=== PATIENT | male | born 1960 | race Two or more races ===

== ENCOUNTER → 2022-03-05 09:33 | Outpatient (BNVA) | payer OTHER, MEDICARE, SELFPAY | PROVIDERS: PCP Family Medicine; Visit Provider Internal Medicine Rheumatology | DX: L40.50 Arthropathic psoriasis, unspecified (principal); Z79.60 Long term (current) use of unspecified immunomodulators and immunosuppressants | CPT/HCPCS: 99202 ==

== ENCOUNTER → 2022-07-05 08:42 | Outpatient (BNVA) | payer OTHER, MEDICARE, SELFPAY | PROVIDERS: PCP Family Medicine; Visit Provider Internal Medicine Rheumatology | DX: L40.50 Arthropathic psoriasis, unspecified (principal); Z79.60 Long term (current) use of unspecified immunomodulators and immunosuppressants | CPT/HCPCS: 99212 ==

== ENCOUNTER 2022-08-07 08:57 | Outpatient (REF) | payer OTHER, MEDICARE, SELFPAY ==
[2022-08-07 10:50] LABS: MANUAL DIFF FLAG NO
[2022-08-07 10:58] LABS: Basophils Percent Auto 0.6 % (0-2); Eosinophils Absolute Auto 0.2 X10*3/uL (0.0-0.4); Hematocrit 41.4 % (42.0-52.0); Hemoglobin 14.4 g/dl (14.0-18.0); Imm Gran Abs Auto 0.02 X10*3/uL (0.00-0.03); Imm Gran Pct Auto 0.3 % (0.0-0.4); Mean Corpuscular HGB Conc 34.8 g/dl (31.0-36.0); Mean Corpuscular Hemoglobin 35.2 pg (27.0-33.0); Mean Corpuscular Volume 101.2 fL (80.0-98.0); Mean Platelet Volume 9.1 fL (9.4-12.4); Monocytes Absolute Auto 0.6 X10*3/uL (0.1-1.2); Neutrophils Absolute Auto 3.7 x10*3/uL (2.0-8.3); Neutrophils Percent Auto 57.1 % (45-73); Platelet Count 210 X10*3/uL (160-400); Red Blood Count 4.09 X10*6/uL (4.60-5.80); Red Cell Distribution Width 11.8 % (11.0-16.0); White Blood Count 6.6 X10*3/uL (4.8-10.8)
== END 2022-08-07 08:58 | disposition home or self-care (01) ==
LOC: HO.10HDL 08:57
PROVIDERS: Visit Provider Internal Medicine Rheumatology
DX: Z79.899 Other long term (current) drug therapy (principal); Z79.60 Long term (current) use of unspecified immunomodulators and immunosuppressants
CPT/HCPCS: 36415; 85025

== ENCOUNTER 2022-08-20 08:59 | Outpatient (REF) | payer OTHER, MEDICARE, SELFPAY ==
[2022-08-20 10:59] LABS: Alanine Aminotransferase 19 U/L (0-40); Aspartate Amino Transferase 21 U/L (5-37); C Reactive Protein 0.13 mg/dL (< or = 0.50); Estimated Glomerular Filt Rate > 60
[2022-08-20 11:41] LABS: Erythrocyte Sedimentation Rate 6 MM/HR (0-15)
== END 2022-08-20 09:00 | disposition home or self-care (01) ==
LOC: HO.10HDL 08:59
PROVIDERS: Visit Provider Internal Medicine Rheumatology
DX: L40.50 Arthropathic psoriasis, unspecified (principal); Z79.60 Long term (current) use of unspecified immunomodulators and immunosuppressants; Z79.899 Other long term (current) drug therapy
CPT/HCPCS: 36415; 82565; 84450; 84460; 85652; 86140

== ENCOUNTER 2022-11-07 09:02 | Outpatient (REF) | payer OTHER, MEDICARE, SELFPAY ==
[2022-11-07 11:01] LABS: MANUAL DIFF FLAG NO
[2022-11-07 11:07] LABS: Basophils Percent Auto 0.5 % (0-2); Eosinophils Absolute Auto 0.2 X10*3/uL (0.0-0.4); Eosinophils Percent Auto 2.3 % (0-4); Hematocrit 40.9 % (42.0-52.0); Hemoglobin 14.6 g/dl (14.0-18.0); Imm Gran Abs Auto 0.03 X10*3/uL (0.00-0.03); Imm Gran Pct Auto 0.5 % (0.0-0.4); Lymphocytes Absolute Auto 2.1 X10*3/uL (1.2-4.9); Lymphocytes Percent Auto 32.3 % (20-40); Mean Corpuscular HGB Conc 35.7 g/dl (31.0-36.0); Mean Corpuscular Hemoglobin 36.8 pg (27.0-33.0); Mean Platelet Volume 9.4 fL (9.4-12.4); Monocytes Absolute Auto 0.5 X10*3/uL (0.1-1.2); Monocytes Percent Auto 7.1 % (2-11); Neutrophils Absolute Auto 3.8 x10*3/uL (2.0-8.3); Neutrophils Percent Auto 57.3 % (45-73); Platelet Count 223 X10*3/uL (160-400); Red Blood Count 3.97 X10*6/uL (4.60-5.80); Red Cell Distribution Width 12.5 % (11.0-16.0); White Blood Count 6.6 X10*3/uL (4.8-10.8)
[2022-11-07 11:52] LABS: Erythrocyte Sedimentation Rate 8 MM/HR (0-15)
[2022-11-07 12:08] LABS: Alanine Aminotransferase 20 U/L (0-40); Aspartate Amino Transferase 20 U/L (5-37); C Reactive Protein 0.36 mg/dL (< or = 0.50); Estimated Glomerular Filt Rate > 60
== END 2022-11-07 09:03 | disposition home or self-care (01) ==
LOC: HO.10HDL 09:02
PROVIDERS: Visit Provider Internal Medicine Rheumatology
DX: L40.50 Arthropathic psoriasis, unspecified (principal); Z79.60 Long term (current) use of unspecified immunomodulators and immunosuppressants; Z79.899 Other long term (current) drug therapy
CPT/HCPCS: 36415; 82565; 84450; 84460; 85025; 85652; 86140

== ENCOUNTER → 2022-11-13 08:44 | Outpatient (BNVA) | payer OTHER, MEDICARE, SELFPAY | PROVIDERS: PCP Family Medicine; Visit Provider Internal Medicine Rheumatology | DX: L40.50 Arthropathic psoriasis, unspecified (principal); Z79.60 Long term (current) use of unspecified immunomodulators and immunosuppressants | CPT/HCPCS: 99212 ==

== ENCOUNTER 2023-03-06 08:34 | Outpatient (REF) | payer OTHER, MEDICARE, SELFPAY ==
[2023-03-06 10:21] LABS: MANUAL DIFF FLAG NO
[2023-03-06 10:24] LABS: Basophils Percent Auto 0.6 % (0-2); Eosinophils Absolute Auto 0.2 X10*3/uL (0.0-0.4); Eosinophils Percent Auto 2.7 % (0-4); Hematocrit 40.5 % (42.0-52.0); Hemoglobin 14.6 g/dl (14.0-18.0); Imm Gran Abs Auto 0.02 X10*3/uL (0.00-0.03); Imm Gran Pct Auto 0.3 % (0.0-0.4); Lymphocytes Absolute Auto 1.6 X10*3/uL (1.2-4.9); Lymphocytes Percent Auto 22.9 % (20-40); Mean Corpuscular Hemoglobin 36.5 pg (27.0-33.0); Mean Corpuscular Volume 101.3 fL (80.0-98.0); Monocytes Absolute Auto 0.5 X10*3/uL (0.1-1.2); Monocytes Percent Auto 7.5 % (2-11); Neutrophils Absolute Auto 4.7 x10*3/uL (2.0-8.3); Platelet Count 202 X10*3/uL (160-400); Red Cell Distribution Width 12.2 % (11.0-16.0); White Blood Count 7.1 X10*3/uL (4.8-10.8)
[2023-03-06 10:41] LABS: Alanine Aminotransferase 16 U/L (0-40); Aspartate Amino Transferase 17 U/L (5-37); C Reactive Protein 4.03 mg/dL (< or = 0.50); Estimated Glomerular Filt Rate 59
[2023-03-06 11:03] LABS: Erythrocyte Sedimentation Rate 16 MM/HR (0-15)
== END 2023-03-06 08:35 | disposition home or self-care (01) ==
LOC: HO.10HDL 08:34
PROVIDERS: Visit Provider Internal Medicine Rheumatology
DX: L40.50 Arthropathic psoriasis, unspecified (principal); Z79.899 Other long term (current) drug therapy
CPT/HCPCS: 36415; 82565; 84450; 84460; 85025; 85652; 86140

== ENCOUNTER 2023-03-14 09:41 | Outpatient (AMB) | payer OTHER, MEDICARE, SELFPAY ==
--- NOTE | 2023-03-14 09:54 | MHC.OFFVIS ---
Intake Vital Signs 03/14/23 10:00 Height 6 ft Weight 209 lb 7.026 oz BMI 28.4 BP 110/64 Blood Pressure Location Lt brachial Position Sitting Pulse 63 Pulse Source Pulse Oximeter Temp 97.9 F Temp Source Skin Pulse Oximetry (%) 98 Oxygen Delivery Method Room Air Intake Visit Reasons: ra Intake Note: Patient presents today to follow up on RA. c/o right foot pain x today Manager Of Medical Required: No Accompanied by: Self / Same As Patient Allergies Sulfa (Sulfonamide Antibiotics) Allergy (Severe, Verified 03/14/23 10:01) hepatitis latex Allergy (Mild, Verified 03/14/23 10:01) Rash HPI HPI Comments History of Present Illness Details The patient returns today for evaluation of his psoriasis and psoriatic arthritis. He remains at 15 mg weekly methotrexate and 3 mg b.i.d. folic acid. In general joints have been reasonably comfortable although he has noted some pain in the right ankle today. He thinks he might have twisted it doing some hiking. He notes a patch of psoriasis on his scalp; he put some clobetasol on his scalp last week. He does see the procurement assistant and receives Egrifta for lipodystrophy. He remains on his medications for HIV without any complications. 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 Card Details: Negative chest pain, edema and syncope Resp Details: Negative for SOB, cough and wheezing GI Details: Negative indigestion/heartburn, nausea, abdominal pain, bowel changes, diarrhea, constipation and bloody stool. Endo Details: Negative for polyuria and polydypsia Abhinav/Lymph Details: Negative for excessive bruising or bleeding. Physical Exam Vital Signs: Last Vital Signs Temp 97.9 F 03/14/23 10:00 Pulse 63 03/14/23 10:00 BP 110/64 03/14/23 10:00 Pulse Ox 98 03/14/23 10:00 Oxygen Delivery Method Room Air 03/14/23 10:00 BMI result Body Mass Index 28.4 APPEARANCE: Patient in no acute distress EYES no redness, pupils equal and reactive to light, eyelids normal SKIN: The right occipital region skin of the scalp may have some slight scaling but no palpable lesions. Elsewhere there are no inflammatory or neoplastic lesions. JOINT EXAM: Cervical Spine:.? Full range of motion without pain; no tenderness. Thoracic Spine:.? No scoliosis.? No tenderness on palpation. Lumbar Spine:.? Alignment normal.? Some lumbar discomfort with extremes of flexion or hyperextension.? No tenderness. Chest Wall:.? No tenderness, swelling, increased warmth or erythema. Hands:? Right: No tenderness or swelling of the MCP joints. There is slight enlargement at the 2nd and 3rd PIP. These are not tender today.? There is nontender bony enlargement at the thumb IP.? No flexor tendon triggering, thenar atrophy or sensory loss.? There is 2nd and 3rd? DIP bony enlargement in the fingers with no tenderness.? Left:? No swelling or tenderness in the MCP joints. ? There is some mild bony enlargement with minimal tenderness at the thumb IP and 2nd DIP joints.? There is some dystrophic nail change at the 4th finger.? Mostly this is a combination of some distortion in the cuticle.? Otherwise he has no flexor tendon triggering, thenar atrophy or sensory loss. Wrists:? Right:? Mild discomfort with flexion or extension at 80 degrees with some no tenderness or swelling.? Left:? Normal pain-free range of motion without tenderness, swelling, increased warmth or erythema. Elbows:. Normal pain-free range of motion without tenderness, swelling, increased warmth or erythema. Shoulders:? Right:? Mild discomfort with extremes of normal abduction or rotation.? There is some slight anterior tenderness but no adenopathy, weakness or swelling.? Left:?? Full range of motion without pain. No tenderness, weakness, swelling, increased warmth or erythema. Hips:.? Right:? Normal pain-free range of motion. No groin pain with motion.? Left:? Full range of motion without pain. Hip bursa:.? Slight left trochanteric tenderness. Knees:.?? Normal pain-free range of motion with mild patellofemoral crepitus and some minimal medial tenderness but no effusion, soft tissue swelling, increased warmth or erythema.? Ankles:.? Right: Mild discomfort with extremes of inversion. Mild lateral tenderness but no redness or swelling. Left: Normal pain-free range of motion with slight medial lateral tenderness.? There is no tenderness or swelling over the Achilles tendons. Feet:.? Right:? Slight bony enlargement at the 1st MTP joint.? There is slight tenderness at the 1st and 2nd MTPs.? There is some thickening of the 4th toe but it is not tender.? Left: Mild tenderness at the 2nd and 3rd MTP joints without any swelling warmth or erythema. 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 2004 methotrexate started about 2014 Code(s): L40.50 - Arthropathic psoriasis, unspecified Plan Psoriatic arthritis with no real evidence of active inflammatory arthritis currently. I do not see any of the skin manifestations of psoriasis at the scalp that he thought he had last week. So the symptoms of the arthritis and psoriasis seem well controlled with the present regimen. I think the methotrexate as above can be continued as the lab work looked okay. He did have an elevated CRP but tells me the test was was a day or 2 after he had received a flu vaccine. The sed rate was only slightly above what it had been before. I told him that he should hold the next dose of methotrexate to enhance the immune response of the vaccination. He would be due for lab work again in May and July. A return in 4 months is recommended Orders: Orders Complete Blood Count Auto Diff Today L40.50 - Arthropathic psoriasis, unspecified, Z79.899 - Other supervisor intermediates (current) drug therapy Erythrocyte Sedimentation Rate 1 Month L40.50 - Arthropathic psoriasis, unspecified Alanine Aminotransferase 1 Month L40.50 - Arthropathic psoriasis, unspecified, Z79.899 - Other group home (current) drug therapy Aspartate Amino Transferase 1 Month L40.50 - Arthropathic psoriasis, unspecified, Z79.899 - Other group home (current) drug therapy Complete Blood Count Auto Diff 1 Month L40.50 - Arthropathic psoriasis, unspecified, Z79.899 - Other group home (current) drug therapy Creatinine 1 Month L40.50 - Arthropathic psoriasis, unspecified, Z79.899 - Other supervisor intermediates (current) drug therapy Erythrocyte Sedimentation Rate Today L40.50 - Arthropathic psoriasis, unspecified C Reactive Protein Today L40.50 - Arthropathic psoriasis, unspecified Alanine Aminotransferase Today L40.50 - Arthropathic psoriasis, unspecified, Z79.899 - Other supervisor intermediates (current) drug therapy Aspartate Amino Transferase Today L40.50 - Arthropathic psoriasis, unspecified, Z79.899 - Other group home (current) drug therapy Creatinine Today L40.50 - Arthropathic psoriasis, unspecified, Z79.899 - Other supervisor intermediates (current) drug therapy C Reactive Protein 1 Month L40.50 - Arthropathic psoriasis, unspecified Medications: Refilled folic acid 3 mg (3 x 1 mg) PO BID 540 tabs 1RF Z79.60 - half-way (current) use of unspecified immunomodulators and immunosuppressants methotrexate sodium 15 mg (6 x 2.5 mg) PO QWEEK 24 tabs 3RF L40.50 - Arthropathic psoriasis, unspecified Coding Level of Care Code Est Pt Level 3 (10322) Diagnoses Psoriasis L40.9 Long-term use of immunosuppressant medication Z79.60 Psoriatic arthritis L40.50
[2023-03-14 10:00] VITALS: BP 110/64; PULSE 63; TEMP 36.6; O2SAT 98; BMI 28.4
== END 2023-03-14 10:25 | disposition home or self-care (01) ==
PROVIDERS: PCP Family Medicine; Visit Provider Internal Medicine Rheumatology
DX: L40.9 Psoriasis, unspecified (principal); Z79.60 Long term (current) use of unspecified immunomodulators and immunosuppressants; L40.50 Arthropathic psoriasis, unspecified
CPT/HCPCS: 99213

== ENCOUNTER → 2023-03-14 09:41 | Outpatient (BNVA) | payer OTHER, MEDICARE, SELFPAY | PROVIDERS: PCP Family Medicine; Visit Provider Internal Medicine Rheumatology | DX: L40.9 Psoriasis, unspecified (principal); L40.50 Arthropathic psoriasis, unspecified; Z79.60 Long term (current) use of unspecified immunomodulators and immunosuppressants | CPT/HCPCS: 99212 ==

== ENCOUNTER 2023-05-16 07:44 | Outpatient (REF) | payer OTHER, MEDICARE, SELFPAY ==
[2023-05-16 10:22] LABS: MANUAL DIFF FLAG NO
[2023-05-16 10:28] LABS: Basophils Percent Auto 0.5 % (0-2); Eosinophils Absolute Auto 0.3 X10*3/uL (0.0-0.4); Eosinophils Percent Auto 4.6 % (0-4); Hematocrit 40.9 % (42.0-52.0); Hemoglobin 14.4 g/dl (14.0-18.0); Imm Gran Abs Auto 0.02 X10*3/uL (0.00-0.03); Imm Gran Pct Auto 0.3 % (0.0-0.4); Lymphocytes Absolute Auto 2.1 X10*3/uL (1.2-4.9); Lymphocytes Percent Auto 33.4 % (20-40); Mean Corpuscular HGB Conc 35.2 g/dl (31.0-36.0); Mean Corpuscular Hemoglobin 34.9 pg (27.0-33.0); Monocytes Absolute Auto 0.4 X10*3/uL (0.1-1.2); Monocytes Percent Auto 6.7 % (2-11); Neutrophils Absolute Auto 3.4 x10*3/uL (2.0-8.3); Neutrophils Percent Auto 54.5 % (45-73); Platelet Count 229 X10*3/uL (160-400); Red Blood Count 4.13 X10*6/uL (4.60-5.80); White Blood Count 6.1 X10*3/uL (4.8-10.8)
[2023-05-16 10:36] LABS: Alanine Aminotransferase 19 U/L (0-40); Aspartate Amino Transferase 18 U/L (5-37); C Reactive Protein 0.18 mg/dL (< or = 0.50); Estimated Glomerular Filt Rate > 60
[2023-05-16 11:10] LABS: Erythrocyte Sedimentation Rate 7 MM/HR (0-15)
== END 2023-05-16 07:45 | disposition home or self-care (01) ==
LOC: HO.10HDL 07:44
PROVIDERS: Visit Provider Internal Medicine Rheumatology
DX: L40.50 Arthropathic psoriasis, unspecified (principal); Z79.899 Other long term (current) drug therapy
CPT/HCPCS: 36415; 82565; 84450; 84460; 85025; 85652; 86140

== ENCOUNTER 2023-07-01 08:48 | Outpatient (REF) | payer OTHER, MEDICARE, SELFPAY ==
[2023-07-01 10:40] LABS: MANUAL DIFF FLAG NO
[2023-07-01 10:45] LABS: Basophils Percent Auto 0.6 % (0-2); Eosinophils Absolute Auto 0.2 X10*3/uL (0.0-0.4); Eosinophils Percent Auto 3.3 % (0-4); Hematocrit 40.2 % (42.0-52.0); Hemoglobin 14.5 g/dl (14.0-18.0); Imm Gran Abs Auto 0.04 X10*3/uL (0.00-0.03); Imm Gran Pct Auto 0.6 % (0.0-0.4); Lymphocytes Percent Auto 31.1 % (20-40); Mean Corpuscular HGB Conc 36.1 g/dl (31.0-36.0); Mean Corpuscular Hemoglobin 35.5 pg (27.0-33.0); Mean Corpuscular Volume 98.5 fL (80.0-98.0); Monocytes Absolute Auto 0.5 X10*3/uL (0.1-1.2); Monocytes Percent Auto 8.1 % (2-11); Neutrophils Absolute Auto 3.6 x10*3/uL (2.0-8.3); Neutrophils Percent Auto 56.3 % (45-73); Platelet Count 237 X10*3/uL (160-400); Red Blood Count 4.08 X10*6/uL (4.60-5.80); Red Cell Distribution Width 13.2 % (11.0-16.0); White Blood Count 6.4 X10*3/uL (4.8-10.8)
[2023-07-01 10:52] LABS: Alanine Aminotransferase 18 U/L (0-40); Aspartate Amino Transferase 18 U/L (5-37); C Reactive Protein 0.12 mg/dL (< or = 0.50); Estimated Glomerular Filt Rate 56
[2023-07-01 11:25] LABS: Erythrocyte Sedimentation Rate 6 MM/HR (0-15)
== END 2023-07-01 08:49 | disposition home or self-care (01) ==
LOC: HO.10HDL 08:48
PROVIDERS: Visit Provider Internal Medicine Rheumatology
DX: L40.50 Arthropathic psoriasis, unspecified (principal); Z79.899 Other long term (current) drug therapy
CPT/HCPCS: 36415; 82565; 84450; 84460; 85025; 85652; 86140

== ENCOUNTER 2023-07-17 12:49 | Outpatient (AMB) | payer OTHER, SELFPAY ==
--- NOTE | 2023-07-17 12:57 | A.OFFVIS_ITS ---
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 c/o right hip pain x 1 mo Real Estate Investor Required: No Accompanied by: Self / Same As Patient Allergies Sulfa (Sulfonamide Antibiotics) Allergy (Severe, Verified 07/17/23 12:57) hepatitis latex Allergy (Mild, Verified 07/17/23 12:57) Rash HPI HPI Comments History of Present Illness Details Mr. Black returns today for follow up of his psoriasis and psoriatic arthritis. He remains at 15 mg weekly methotrexate and 3 mg b.i.d. folic acid. In general joints have been reasonably comfortable. He uses clobetasol on small patches of Psoriasis as needed. He does see the dental mechanic and receives Egrifta for lipodystrophy. He remains on his medications for HIV without any complications. He denies concerns for uvitiis, loose stools with mucous or blood, tendinitis, achilles tendon pain or plantar fasciitis. 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 Regular rhythm, S1-S2 heard, no murmurs, rubs or gallops. LUNG:? Clear to percussion and auscultation SKIN: The right occipital region skin of the scalp may have some slight scaling but no palpable lesions. Elsewhere there are no inflammatory or neoplastic lesions. JOINT EXAM: Cervical Spine:.? Full range of motion without pain; no tenderness. Thoracic Spine:.? No scoliosis.? No tenderness on palpation. Lumbar Spine:.? Alignment normal.? Some lumbar discomfort with extremes of flexion or hyperextension.? No tenderness. Chest Wall:.? No tenderness, swelling, increased warmth or erythema. Hands:? Right: No tenderness or swelling of the MCP joints. There is slight enlargement at the 2nd and 3rd PIP. These are not tender today.? There is nontender bony enlargement at the thumb IP.? No flexor tendon triggering, thenar atrophy or sensory loss.? There is 2nd and 3rd? DIP bony enlargement in the fin gers with no tenderness.? Left:? No swelling or tenderness in the MCP joints. ? There is some mild bony enlargement with minimal tenderness at the thumb IP and 2nd DIP joints.? There is some dystrophic nail change at the 4th finger.? Mostly this is a combination of some distortion in the cuticle.? Otherwise he has no flexor tendon triggering, thenar atrophy or sensory loss. Wrists:? Right:? Mild discomfort with flexion or extension at 80 degrees with some no tenderness or swelling.? Left:? Normal pain-free range of motion without tenderness, swelling, increased warmth or erythema. Elbows:. Normal pain-free range of motion without tenderness, swelling, increased warmth or erythema. Shoulders:? Right:? Mild discomfort with extremes of normal abduction or rotation.? There is some slight anterior tenderness but no adenopathy, weakness or swelling.? Left:?? Full range of motion without pain. No tenderness, weakness, swelling, increased warmth or erythema. Hips:.? Right:? Normal pain-free range of motion. No groin pain with motion.? Left:? Full range of motion without pain. Hip bursa:.? Slight left trochanteric tenderness. Knees:.?? Normal pain-free range of motion with mild patellofemoral crepitus and some minimal medial tenderness but no effusion, soft tissue swelling, increased warmth or erythema.? Ankles:.? Right: Mild discomfort with extremes of inversion. Mild lateral tenderness but no redness or swelling. Left: Normal pain-free range of motion with slight medial lateral tenderness.? There is no tenderness or swelling over the Achilles tendons. Feet:.? Right:? Slight bony enlargement at the 1st MTP joint.? There is slight tenderness at the 1st and 2nd MTPs.? There is some thickening of the 4th toe but it is not tender.? Left: Mild tenderness at the 2nd and 3rd MTP joints without any swelling warmth or erythema. Results Reviewed Results Reviewed: Laboratory Tests 03/06/23 08:40 WBC 7.1 Hgb 14.6 ESR 16 H Creatinine 1.25 AST 17 ALT 16 C-Reactive Protein 4.03 H Laboratory Tests 07/01/23 08:52 WBC 6.4 RBC 4.08 L Hgb 14.5 Hct 40.2 L MCV 98.5 H ESR 6 Creatinine 1.29 Estimated GFR 56 AST 18 ALT 18 C-Reactive Protein 0.12 Assessment & Plan Assessment & Plan (1) Psoriasis: Code(s): L40.9 - Psoriasis, unspecified (2) Long-term use of immunosuppressant medication: Code(s): Z79.60 - long term care social worker (current) use of unspecified immunomodulators and immunosuppressants (3) Psoriatic arthritis: Comment: Onset ? 2004 methotrexate started about 2014 Code(s): L40.50 - Arthropathic psoriasis, unspecified (4) Elevated MCV: Code(s): R71.8 - Other abnormality of red blood cells Plan #PsA/PsO:Psoriatic arthritis with no real evidence of active inflammatory art hritis currently. The ESR and CRP are at goal and on PE there is no skin manifestations of psoriasis. The symptoms of the arthritis and psoriasis seem well controlled with the MTX 15 mg QW so we will continue this regimen. #Sprinkler Helper Use/MCV: The Labs are grossly WNL so we will continue MTX and Folic Acid 3 mg QD. Patient denies any side effects and understands that the higher dose of Folic acid works as he was having mouth sores when he first started MTX. He has a history of elevated MCV which has been trending down. It has gone up as high as 103.00 and is now 98.5 (98). MCV can be elevated due to MTX, folic acid helps to resolve but B12 should also be assessed if it becomes problematic. Patient denies fatigue, no beefy, red tongue on PE. A return in 4 months is recommended with labs 1 week before next visit Orders: Orders Comprehensive Met. Panel 07/17/23 L40.50 - Arthropathic psoriasis, unspecified, Z79.60 - long term care social worker (current) use of unspecified immunomodulators and immunosuppressants C Reactive Protein 07/17/23 L40.50 - Arthropathic psoriasis, unspecified, Z79.60 - senior living (current) use of unspecified immunomodulators and immunosuppressants Complete Blood Count Auto Diff 07/17/23 L40.50 - Arthropathic psoriasis, unspecified, Z79.60 - long term care social worker (current) use of unspecified immunomodulators and immunosuppressants Erythrocyte Sedimentation Rate 07/17/23 L40.50 - Arthropathic psoriasis, unspecified, Z79.60 - long term care social worker (current) use of unspecified immunomodulators and immunosuppressants Coding Level of Care Code Est Pt Level 3 (69386) Diagnoses Psoriasis L40.9 Long-term use of immunosuppressant medication Z79.60 Psoriatic arthritis L40.50 Elevated MCV R71.8
[2023-07-17 12:58] VITALS: BP 110/80; PULSE 71; TEMP 36.3; O2SAT 98; BMI 28.4
== END 2023-07-17 13:22 | disposition home or self-care (01) ==
PROVIDERS: PCP Family Medicine; Visit Provider Nurse Practitioner Family
DX: L40.9 Psoriasis, unspecified (principal); Z79.60 Long term (current) use of unspecified immunomodulators and immunosuppressants; L40.50 Arthropathic psoriasis, unspecified; R71.8 Other abnormality of red blood cells
CPT/HCPCS: 99213

== ENCOUNTER → 2023-07-17 12:49 | Outpatient (BNVA) | payer OTHER, MEDICARE, SELFPAY | PROVIDERS: PCP Family Medicine; Visit Provider Nurse Practitioner Family | DX: L40.9 Psoriasis, unspecified (principal); L40.50 Arthropathic psoriasis, unspecified; R71.8 Other abnormality of red blood cells; Z79.60 Long term (current) use of unspecified immunomodulators and immunosuppressants | CPT/HCPCS: 99212 ==